=== PATIENT | male | born 1980 | race Caucasian/White ===

== ENCOUNTER 2019-02-18 21:51 | Emergency (ER) | payer OTHER ==
[~2019-02-18] VITALS: Ht 177.8 cm; Wt 99.8 kg
[~2019-02-18 21:51] MED LIST: CIPROFLOXACIN500 M1 PO; IBUPROFEN 800800 MG PO; NOHOMEMEDICATIONS; ULTRAM 50MG TAB50 MG PO
[2019-02-18 22:18] LABS: HEMATOCRIT 46.8 % (42.0-52.0); HEMOGLOBIN 16.4 gm/dL (14.0-18.0); MCH 32.8 pg (26.0-34.0); MCHC 35.1 g/dL (28.0-37.0); MCV 93.6 fL (80.0-100.0); MPV 7.5 fl. (7.2-11.1); RDW-CV 16.5 % (10.5-14.5); WBC 6.7 thou/uL (4.0-11.0)
[2019-02-18 22:26] LABS: CALCIUM 7.3 mg/dL (8.5-10.1); CREATININE 0.7 mg/dL (0.6-1.3); POTASSIUM 3.1 mmol/L (3.5-5.1)
[2019-02-18 22:41] LABS: ALBUMIN 3.4 g/dL (3.4-5.0); TOTAL BILIRUBIN 2.9 mg/dL (<0.1-1.0); TOTAL PROTEIN 6.2 g/dL (6.4-8.2)
[2019-02-19 02:20] VITALS: BP 168/96
--- NOTE | 2019-02-19 18:02 | EKG ---
[place] [address] ELECTROCARDIOGRAM REPORT Name: BUTCHSTEFANIE Room: [facility]#: [id number] Admission: 02/18/19 Attend Phys: Discharge: 02/19/19 Date of : 76 Report #: [id number] THIS REPORT FOR: //name// [facility] ED Test Date: 2019-02-18 Test Time: 22:16:07 Pat Name: STEFANIE RAE Department: Room: Gender: M [facility] Therapist: BRIGIDO : 1980 Requested By: Fidel Johnston Order Number: [id number] MD: Juarez Fong Measurements Intervals [place] Rate: 110 P: 62 ND: 164 QRS: 33 QRSD: 109 T: 15 QT: 354 QTc: 480 Interpretive Statements Sinus tachycardia Borderline T abnormalities, anterior leads Borderline prolonged QT interval Baseline wander in lead(s) V1,V2,V3,V5,V6 No previous ECG available for comparison Electronically Signed On 02-19-2019 18:02:39 CDT by Juarez Fong [email or web address] <ELECTRONICALLY SIGNED> By: Jeniffer Fong MD, [facility] 02/19/19 180 15 15 Jeniffer Fong MD, [facility] /EPI
== END 2019-02-19 02:45 | disposition home or self-care (01) ==
LOC: M.ERS 21:51
PROVIDERS: Emergency Medicine Emergency Medical Services
DX: F10.129 Alcohol abuse with intoxication, unspecified (principal); F17.210 Nicotine dependence, cigarettes, uncomplicated; Z91.041 Radiographic dye allergy status; Z88.0 Allergy status to penicillin; Z88.2 Allergy status to sulfonamides; Y90.0 Blood alcohol level of less than 20 mg/100 ml